=== PATIENT | female | born 1955 ===

== ENCOUNTER 2016-12-26 15:06 | Observation (INO) | payer MEDICAID ==
--- NOTE | 2016-12-26 15:54 | C.PDOC ---
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 Denies trauma, injury, fever or any other complaints at this time. no previou cardiac history. Time Seen by Provider: 12/26/16 15:36 Chief Complaint (Nursing): Chest Pain History Per: Patient History/Exam Limitations: no limitations Onset/Duration Of Symptoms: Days Current Symptoms Are (Timing): Still Present Quality: "Pain" Associated Symptoms: denies: Nausea, Dyspnea, Diaphoresis, Syncope Modifying Factors: None Exacerbating Factors: None Alleviating Factors: None Recent travel outside of the [place]: No Additional History Per: Patient Past Medical History Reviewed: Historical Data, Nursing Documentation, Vital Signs Vital Signs: Last Vital Signs Temp 97.5 F L 12/28/16 07:00 Pulse 68 12/28/16 07:00 Resp 20 12/28/16 07:00 BP 154/76 H 12/28/16 09:13 Pulse Ox 98 12/28/16 07:00 Surgical History: Cholecystectomy - [facility] Procedures DESTRUCT LARYNX LES NEC (02/07/97) Family History: States: Unknown Family Hx - Social History Hx Alcohol Use: No Hx Substance Use: No Review Of Systems Except As Marked, All Systems Reviewed And Found Negative. Constitutional: Negative for: Fever, Chills Cardiovascular: Positive for: Chest Pain. Negative for: Palpitations Respiratory: Negative for: Cough, Shortness of Breath Neurological: Positive for: Headache. Negative for: Weakness, Numbness, Dizziness Physical Exam - Physical Exam Appears: Non-toxic, No Acute Distress Skin: Normal Color, Warm, Dry Head: Atraumatic, Normacephalic Eye(s): bilateral: Normal Inspection Oral Mucosa: Moist Neck: Supple Chest: Symmetrical, No Deformity, No Tenderness Cardiovascular: Rhythm Regular, No Murmur Respiratory: Normal Breath Sounds, No Rales, No Rhonchi, No Wheezing Gastrointestinal/Abdominal: Soft, No Tenderness Extremity: Normal ROM, No Pedal Edema Neurological/Psych: Oriented x3, Normal Speech ED Course And Treatment - Laboratory Results Result Diagrams: 12/27/16 07:00 12/27/16 07:00 ECG: Interpreted By Me, Viewed By Me ECG Rhythm: Sinus Bradycardia ECG Interpretation: No Acute Changes Rate From EC (bpm) O2 Sat by Pulse Oximetry: 100 (RA) Pulse Ox Interpretation: Normal - CT Scan/US Head CT Other Rad Studies (CT/US): Read By Radiologist, Radiology Report Reviewed CT/US Interpretation: Accession No. : [id number]. Patient Name / ID : CHRISTOPHE HENDERSON / [id number]. Exam Date : 12/26/2016 16:15:34 ( Approved ). Study Comment : Sex / Age : F / [id number]. Creator : Emilee Lima. Dictator : Maco Escobedo MD. Clinical Data Analyst : Lunchroom Operator : Maco Escobedo MD. Approver2 : Report Date : 12/26/2016 16:20:45. My Comment : . PROCEDURE: CT HEAD WITHOUT CONTRAST. HISTORY: acosta. COMPARISON: None available. TECHNIQUE: Axial computed tomography images were obtained through the head/brain without intravenous contrast. Radiation dose: Total exam DLP = 842.23 mGy-cm. This CT exam was performed using one or more of the following dose reduction techniques: Automated exposure control, adjustment of the mA and/ or kV according to patient size, and/or use of iterative reconstruction technique. FINDINGS: HEMORRHAGE: No intracranial hemorrhage. BRAIN: Probable calcified meningioma in the anterior right temporal lobe/ right middle cranial fossa. Recommend correlation with prior outside studies. Several incidental parenchymal calcifications in the left posterior temporal lobe common nonspecific. No evidence of acute infarct. VENTRICLES: Unremarkable. No hydrocephalus. CALVARIUM: Unremarkable. PARANASAL SINUSES: Unremarkable as visualized. No significant inflammatory changes. MASTOID AIR CELLS: Unremarkable as visualized. No inflammatory changes. OTHER FINDINGS: None. IMPRESSION: No evidence of acute infarct. No intracranial hemorrhage. Probable calcified meningioma in the right temporal lobe/right middle cranial fossa. . Please correlate with prior outside images if available. No acute findings. Medical Decision Making Medical Decision Making: Blood work, UA, head CT, CXR, EKG ordered and reviewed. atypcial cp, however pt only c/o of 2 hours of pain. will obs for repeat trop, as 1 set is indeterm[address] cho accepts Disposition - Disposition Disposition: HOSPITALIZED Disposition Time: 06:00 Condition: STABLE - Clinical Impression Clinical Impression: Chest pain - Scribe Statement The provider has reviewed the documentation as recorded by the Scribe Andres Gee All medical record entries made by the Scribe were at my direction and personally dictated by me. I have reviewed the chart and agree that the record accurately reflects my personal performance of the history, physical exam, medical decision making, and the department course for this patient. I have also personally directed, reviewed, and agree with the discharge instructions and disposition. Decision To Admit - Pt Status Changed To: Hospital Disposition Of: Observation - . Bed Request Type: Telemetry Admitting Physician: Galo Cho Patient Diagnosis: Chest pain
[2016-12-26 16:05] LABS: EOS # 0.2 K/uL (0.0-0.7); NRBC % 0.1 % (0.0-2.0)
[2016-12-26 16:09] LABS: BASO % 0.5 % (0.0-2.0); EOS % 2.1 % (0.0-4.0); HEMATOCRIT 38.7 % (34.0-47.0); LYMPH % 22.6 % (20.0-40.0); MEAN CELL VOLUME 84.2 fL (81.0-99.0); MEAN CORPUSCULAR HEMOGLOBIN 28.8 pg (27.0-31.0); MEAN CORPUSCULAR HGB CONC 34.2 g/dL (33.0-37.0); MEAN PLATELET VOLUME 8.7 fL (7.2-11.7); MONO # 0.5 K/uL (0.0-0.8); MONO % 6.2 % (0.0-10.0); RED CELL DISTRIBUTION WIDTH 13.6 % (11.5-14.5); WHITE BLOOD COUNT 8.7 K/uL (4.8-10.8)
[2016-12-26 16:15] LABS: ALB/GLOB RATIO 1.6 (1.0-2.1); ALKALINE PHOSPHATASE 69 U/L (38-126); ALT/SGPT 33 U/L (9-52); AST/SGOT 18 U/L (14-36); BLOOD UREA NITROGEN 20 mg/dL (7-17); CALCIUM 8.4 mg/dl (8.6-10.4); CARBON DIOXIDE 27 mmol/L (22-30); CHLORIDE 100 mmol/L (98-107); GFR AFRICAN-AMERICAN > 60; GLUCOSE,RANDOM 84 mg/dL (65-105); POTASSIUM 3.5 mmol/L (3.6-5.2); SODIUM 137 mmol/L (132-148); TOTAL PROTEIN 6.6 g/dL (6.3-8.3)
[2016-12-26 16:18] LABS: RBC URINE 22 /hpf (0-3); TRANSITIONAL EPITHIAL < 1 /hpf (0-3); URINE BACTERIA OCC (<OCC); URINE BILIRUBIN NEGATIVE (NEGATIVE); URINE BLOOD 2+ (NEGATIVE); URINE COLOR Yellow (YELLOW); URINE GLUCOSE (UA) NORMAL (Normal); URINE KETONE NEGATIVE (NEGATIVE); URINE LEUKOCYTE ESTERASE 1+ Leu/uL (Negative); URINE PROTEIN NEGATIVE (NEGATIVE); URINE UROBILINOGEN NORMAL mg/dL (0.2-1.0); WBC URINE 8 /hpf (0-5)
--- NOTE | 2016-12-26 16:33 | CT ---
PROCEDURE: CT HEAD WITHOUT CONTRAST. HISTORY: acosta COMPARISON: None available. TECHNIQUE: Axial computed tomography images were obtained through the head/brain without intravenous contrast. Radiation dose: Total exam DLP = 842.23 mGy-cm. This CT exam was performed using one or more of the following dose reduction techniques: Automated exposure control, adjustment of the mA and/or kV according to patient size, and/or use of iterative reconstruction technique. FINDINGS: HEMORRHAGE: No intracranial hemorrhage. BRAIN: Probable calcified meningioma in the anterior right temporal lobe/ right middle cranial fossa. Recommend correlation with prior outside studies. Several incidental parenchymal calcifications in the left posterior temporal lobe common nonspecific. No evidence of acute infarct. VENTRICLES: Unremarkable. No hydrocephalus. CALVARIUM: Unremarkable. PARANASAL SINUSES: Unremarkable as visualized. No significant inflammatory changes. MASTOID AIR CELLS: Unremarkable as visualized. No inflammatory changes. OTHER FINDINGS: None. IMPRESSION: No evidence of acute infarct. No intracranial hemorrhage. Probable calcified meningioma in the right temporal lobe/right middle cranial fossa. . Please correlate with prior outside images if available. No acute findings.
--- NOTE | 2016-12-26 17:26 | RAD ---
PROCEDURE: CHEST RADIOGRAPH, 1 VIEW HISTORY: chest pain COMPARISON: None available. FINDINGS: LUNGS: Clear. PLEURA: No pneumothorax or pleural fluid seen. CARDIOVASCULAR: Normal. OSSEOUS STRUCTURES: No significant abnormalities. VISUALIZED UPPER ABDOMEN: Normal. OTHER FINDINGS: None. IMPRESSION: No active disease.
--- NOTE | 2016-12-26 19:04 | CP.PCM.HP ---
History of Present Illness - History of Present Illness History of Present Illness: COMPREHENSIVE HISTORY & PHYSICAL EXAM HPI One day history of left-sided chest pain stopped a stabbing with radiation to left arm associated with mild diaphoresis. Patient was evaluated in the ER with normal troponin and EKG. There is a past history of hypertension. PAST HIST. PERSONAL HIST: Smoking. N Alcohol. N Allergy N Travel_- . FAMILY HIST : ROS : Constitutional: Negative for weight change, chills, night sweats, fatigue and usage of assist device. Eyes: Negative for redness, swelling, itching, discharge, vision changes, blurry vision, double vision, glaucoma, cataracts, Ears: Negative for hearing loss, ringing, , tinnitus, vertigo Nose: Negative for rhinorrhea, stuffiness, sniffing, itching, postnasal drip, discoloration, nasal congestion and epistaxis. Throat: Negative for throat clearing, sore throat, hoarseness, difficulty swallowing and difficulty speaking. Respiratory: Negative for cough, chest tightness, sputum or phlegm, chronic cough, hemoptysis, wheezing, snoring at night, pleuritic chest pain and daytime somnolence. Cardiovascular: Negative for orthopnea, PND, Edema of legs, leg cramps, angina , claudication, , irregular heartbeat, Neurology: Negative for irritability, muscle weakness, numbness and tingling, seizures, tremors, migraines, slurred speech, syncope, memory loss, mood changes , recurrent headaches Gastrointestinal: Negative for difficulty swallowing, diarrhea, constipation, black stools, rectal bleeding, nausea, flatulence, reflux, poor appetite, changes in bowel habits, abdominal pain Genitourinary: Negative for frequent urination, hematuria, discharge, incontinence, urinary retention, frequent UTI, Psychiatric: Negative for depression, anxiety/panic, suicidal tendencies, Musculoskeletal: Negative for swollen joints, back pain, , neck pain, morning stiffness of joints, . Skin: Negative for rash, ulcers, itching, dry skin and pigmented lesions. P/E: Constitutional: Appears stated age and in no apparent distress. Head: Normocephalic. Ears: External ear canals patent without inflammation. Tympanic membranes intact with normal light reflex and landmark. Eyes: Pupils are central, bilaterally equal, symmetrical and reacts to light with normal movements and no icterus or pallor. Nose: External nares are patent. Mucosa is pink Mouth-Throat: Good general appearance and condition. No post-pharyngeal/oropharyngeal erythema and tonsillar hypertrophy. Good dental hygiene. Neck-Lymphatic: Neck is supple with normal ROM, no thyromegaly, lymph nodes or masses. JVD is normal with no carotid bruit. Lungs: Clear to percussion and auscultation with bilateral normal air entry. Cardiovascular: S1 and S2 are normal with no murmurs, gallops and rub. GI Exam: No hepatomegaly. Abdomen is soft and non-tender. No Organomegaly , masses or hernias are evident and bowel sounds are normal and active. Neurology: Higher function and all cranial nerves intact, with no gross motor or sensory deficit. Superficial and deep reflexes are normal with downwards planters. No cerebellar deficit with normal gait. Musculoskeletal: No tender spots with normal curvature of the spine with no swelling or restricted ROM of the small and large joints. Extremities: Homans sign absent. Intact pulses with no pitting edema, calf tenderness or skin color changes. Skin: No rash, eruptions or abnormal skin pigmentation LAB/RADIOLOGY: ASSESMENT : Acute coronary syndrome. Hypertension. Present on Admission - Present on Admission Any Indicators Present on Admission: No Past Patient History - Past Social History Smoking Status: Never Smoked - ENDOCRINE/METABOLIC Hx Diabetes Mellitus Type 2: Yes (not on meds) - PSYCHIATRIC Hx Substance Use: No - SURGICAL HISTORY Hx Cholecystectomy: Yes Meds Allergies/Adverse Reactions: Allergies Allergy/AdvReac Type Severity Reaction Status Date / Time No Known Allergies Allergy Unverified 12/26/16 15:15 Results - Vital Signs Recent Vital Signs: Last Vital Signs Temp 98.0 F 12/26/16 18:51 Pulse 72 12/26/16 18:51 Resp 18 12/26/16 18:51 BP 146/78 12/26/16 18:51 Pulse Ox 100 12/26/16 18:51 - Labs Result Diagrams: 12/26/16 15:56 12/26/16 15:56 Labs: Laboratory Results - last 24 hr 12/26/16 12/26/16 12/26/16 15:56 15:56 15:56 WBC 8.7 RBC 4.59 Hgb 13.2 Hct 38.7 MCV 84.2 MCH 28.8 MCHC 34.2 RDW 13.6 Plt Count 256 MPV 8.7 Neut % (Auto) 68.6 Lymph % (Auto) 22.6 [place] % (Auto) 6.2 Eos % (Auto) 2.1 Baso % (Auto) 0.5 Neut # 5.9 Lymph # 2.0 [place] # 0.5 Eos # 0.2 Baso # 0.0 PT 11.3 INR 1.0 APTT 28 Sodium 137 Potassium 3.5 L Chloride 100 Carbon Dioxide 27 Anion Gap 14 BUN 20 H Creatinine 0.6 L Est GFR ( Amer) > 60 Est GFR (Non-Af Amer) > 60 Random Glucose 84 Calcium 8.4 L Total Bilirubin 1.0 AST 18 ALT 33 Alkaline Phosphatase 69 Troponin I < 0.0120 Total Protein 6.6 Albumin 4.1 Globulin 2.6 Albumin/Globulin Ratio 1.6 Urine Color Urine Clarity Urine pH Ur Specific [place] Urine Protein Urine Glucose (UA) Urine Ketones Urine Blood Urine Nitrate Urine Bilirubin Urine Urobilinogen Ur Leukocyte Esterase Urine WBC (Auto) Urine RBC (Auto) Ur Squamous Epith Cells Ur Transition Epith Cell Urine Bacteria 12/26/16 16:00 WBC RBC Hgb Hct MCV MCH MCHC RDW Plt Count MPV Neut % (Auto) Lymph % (Auto) [place] % (Auto) Eos % (Auto) Baso % (Auto) Neut # Lymph # [place] # Eos # Baso # PT INR APTT Sodium Potassium Chloride Carbon Dioxide Anion Gap BUN Creatinine Est GFR ( Amer) Est GFR (Non-Af Amer) Random Glucose Calcium Total Bilirubin AST ALT Alkaline Phosphatase Troponin I Total Protein Albumin Globulin Albumin/Globulin Ratio Urine Color Yellow Urine Clarity Clear Urine pH 6.0 Ur Specific [place] 1.024 Urine Protein Negative Urine Glucose (UA) Normal Urine Ketones Negative Urine Blood 2+ H Urine Nitrate Negative Urine Bilirubin Negative Urine Urobilinogen Normal Ur Leukocyte Esterase 1+ H Urine WBC (Auto) 8 H Urine RBC (Auto) 22 H Ur Squamous Epith Cells 1 Ur Transition Epith Cell < 1 Urine Bacteria Occ H
[2016-12-27 07:34] LABS: BASO % 0.4 % (0.0-2.0); EOS # 0.3 K/uL (0.0-0.7); EOS % 3.7 % (0.0-4.0); HEMATOCRIT 38.1 % (34.0-47.0); LYMPH # 2.6 K/uL (1.0-4.3); LYMPH % 30.7 % (20.0-40.0); MEAN CELL VOLUME 83.8 fL (81.0-99.0); MEAN CORPUSCULAR HGB CONC 34.6 g/dL (33.0-37.0); MEAN PLATELET VOLUME 8.5 fL (7.2-11.7); MONO # 0.5 K/uL (0.0-0.8); MONO % 5.8 % (0.0-10.0); RED CELL DISTRIBUTION WIDTH 13.4 % (11.5-14.5); WHITE BLOOD COUNT 8.4 K/uL (4.8-10.8)
[2016-12-27 08:03] LABS: ALKALINE PHOSPHATASE 66 U/L (38-126); ALT/SGPT 35 U/L (9-52); AST/SGOT 20 U/L (14-36); BLOOD UREA NITROGEN 19 mg/dL (7-17); CALCIUM 8.7 mg/dl (8.6-10.4); CARBON DIOXIDE 27 mmol/L (22-30); CHLORIDE 101 mmol/L (98-107); GFR AFRICAN-AMERICAN > 60; GLUCOSE,RANDOM 86 mg/dL (65-105); POTASSIUM 3.6 mmol/L (3.6-5.2); SODIUM 137 mmol/L (132-148)
[2016-12-27 08:09] LABS: ALB/GLOB RATIO 1.6 (1.0-2.1)
[2016-12-27] MEDS: Enoxaparin 40 mg Syringe SC SCH (10:05)
--- NOTE | 2016-12-27 14:08 | CP.PCM.PN ---
Subjective - Date & Time of Evaluation Date of Evaluation: 12/27/16 Time of Evaluation: 14:07 - Subjective Subjective: CHIEF COMPLAINTS TODAY : LESS CP TNI NEG ROS. HEENT : N. Resp : No cough, wheezing ,pleuritic CP ,or hemoptysis Cardio : No anginal CP, PND, orthopnea, palpitation GI : No abd.pain, n/v ,diarrhea or GI bleeding . CLINICAL ANALYST : No headache, vertigo, focal deficit. Musculoskel : No joint swelling , Derm : No rash Psych : Normal affect. Ext : No swelling ,calf pain PE. Pt. is alert awake in no distress. V.S As noted in the chart Head ,ear nose,throat and eyes : Normal. Neck : Supple with normal carotids. Lungs: Clear air entry. Heart : S1 & S2 normal with S4. No murmur. Abd : Soft non tender with normal bowel sounds. Neuro : Moves all ext. with no localized deficit. Ext : No edema with intact pulses.Non tender calves Derm : No rashes or decubitus ulcer. LABS/RADIOLOGY: ASSESSMENT/PLAN : CHECK ECHO Objective - Vital Signs/Intake and Output Vital Signs (last 24 hours): Temp Pulse Resp BP Pulse Ox 97.8 F 67 20 172/91 H 99 12/27/16 07:00 12/27/16 09:00 12/27/16 07:00 12/27/16 08:22 12/27/16 07:00 Intake and Output: 12/27/16 12/27/16 11:59 23:59 Intake Total 240 Balance 240 - Medications Medications: Current Medications Aspirin (Ecotrin) 81 mg PO DAILY [facility] Last Admin: 12/27/16 10:06 Dose: 81 mg Enoxaparin Sodium (Lovenox) 40 mg SC DAILY [facility] Last Admin: 12/27/16 10:05 Dose: 40 mg Metoprolol Tartrate (Lopressor) 25 mg PO BID [facility] Last Admin: 12/27/16 09:59 Dose: Not Given Pneumococcal Polyvalent Vaccine (Pneumovax 23 Vaccine) 0.5 ml IM .ONCE ONE Stop: 12/28/16 10:01 - Labs Labs: 12/27/16 07:00 12/27/16 07:00 PT 11.3 SECONDS (9.7-12.2) 12/26/16 15:56 INR 1.0 12/26/16 15:56 APTT 28 SECONDS (21-34) 12/26/16 15:56
--- NOTE | 2016-12-27 16:54 | CARD ---
APPROVED REPORT EXAM: Two-dimensional and M-mode echocardiogram with Doppler and color Doppler. Other Information Quality : GoodRhythm : NSR INDICATION CAD Chest Pain M-Mode DIMENSIONS RVDd1.81 (2.1-3.2cm)Left Atrium (MM)2.55 (2.5-4.0cm) IVSd0.70 (0.7-1.1cm)Aortic Root2.61 (2.2-3.7cm) LVDd4.95 (4.0-5.6cm)Aortic Cusp Exc.1.49 (1.5-2.0cm) PWd0.58 (0.7-1.1cm)FS (%) 40 % LVDs2.95 (2.0-3.8cm)LVEF (%)71 (>50%) Aortic Valve AoV Peak Vjmusbho627.4cm/Kevin Peak GR.8mmHg Mitral Valve MV E Wiyfklia18.0cm/sMV A Diwcbojy961.1cm/sE/A ratio0.9 TDI E/Lateral E'0.0E/Medial E'0.0 Tricuspid Valve TR Peak Knllhnet252oe/sTR Peak Gr.55piUxGLQL62zwOe LEFT VENTRICLE The left ventricle is normal size. There is normal left ventricular wall thickness. Left ventricle systolic function is normal. The Ejection Fraction is 65-70%. There is normal LV segmental wall motion. Transmitral Doppler flow pattern is Grade I-abnormal relaxation pattern. There is no ventricular septal defect visualized. RIGHT VENTRICLE The right ventricle is normal size. The right ventricular systolic function is normal. ATRIA The left atrium is borderline dilated. The right atrium size is normal. AORTIC VALVE The aortic valve is mildly sclerotic. The aortic valve is tri-cuspid. No aortic regurgitation is present. There is no aortic valvular stenosis. MITRAL VALVE The mitral valve is normal in structure. There is no evidence of mitral valve prolapse. Mitral regurgitation is trace. TRICUSPID VALVE The tricuspid valve is normal in structure. There is trace tricuspid regurgitation. There is no pulmonary hypertension. PULMONIC VALVE The pulmonic valve is not well visualized. There is no pulmonic valvular regurgitation. GREAT VESSELS The aortic root is normal in size. The ascending aorta is normal in size. The IVC is normal in size and collapses >50% with inspiration. PERICARDIAL EFFUSION There is no pericardial effusion. <Conclusion> Left ventricle systolic function is normal. The Ejection Fraction is 65-70%. Transmitral Doppler flow pattern is Grade I-abnormal relaxation pattern. Mitral regurgitation is trace.
[2016-12-28] MEDS: Enoxaparin 40 mg Syringe SC SCH (09:12)
[2016-12-28] MEDS ORDERED: Pneumococcal 23-Valent Vaccine IM ONE (10:00)
--- NOTE | 2016-12-28 14:50 | CP.PCM.PN ---
Subjective - Date & Time of Evaluation Date of Evaluation: 12/28/16 Time of Evaluation: 14:49 - Subjective Subjective: CHIEF COMPLAINTS TODAY : LESS CP TNI NEG ROS. HEENT : N. Resp : No cough, wheezing ,pleuritic CP ,or hemoptysis Cardio : No anginal CP, PND, orthopnea, palpitation GI : No abd.pain, n/v ,diarrhea or GI bleeding . RN INFUSION : No headache, vertigo, focal deficit. Musculoskel : No joint swelling , Derm : No rash Psych : Normal affect. Ext : No swelling ,calf pain PE. Pt. is alert awake in no distress. V.S As noted in the chart Head ,ear nose,throat and eyes : Normal. Neck : Supple with normal carotids. Lungs: Clear air entry. Heart : S1 & S2 normal with S4. No murmur. Abd : Soft non tender with normal bowel sounds. Neuro : Moves all ext. with no localized deficit. Ext : No edema with intact pulses.Non tender calves Derm : No rashes or decubitus ulcer. LABS/RADIOLOGY: ECHO NORMAL ASSESSMENT/PLAN : CHECK URINE C/S Objective - Vital Signs/Intake and Output Vital Signs (last 24 hours): Temp Pulse Resp BP Pulse Ox 98.2 F 63 20 149/73 97 12/28/16 14:24 12/28/16 14:24 12/28/16 14:24 12/28/16 14:24 12/28/16 14:24 Intake and Output: 12/28/16 12/28/16 11:59 23:59 Intake Total 240 500 Balance 240 500 - Medications Medications: Current Medications Acetaminophen (Tylenol 325mg Tab) 650 mg PO Q4 PRN PRN Reason: Pain, moderate (4-7) Last Admin: 12/28/16 14:39 Dose: 650 mg Aspirin (Ecotrin) 81 mg PO DAILY [facility] Last Admin: 12/28/16 09:13 Dose: 81 mg Enoxaparin Sodium (Lovenox) 40 mg SC DAILY [facility] Last Admin: 12/28/16 09:12 Dose: 40 mg Metoprolol Tartrate (Lopressor) 25 mg PO BID [facility] Last Admin: 12/28/16 09:13 Dose: 25 mg - Labs Labs: 12/27/16 07:00 12/27/16 07:00 PT 11.3 SECONDS (9.7-12.2) 12/26/16 15:56 INR 1.0 12/26/16 15:56 APTT 28 SECONDS (21-34) 12/26/16 15:56
[2016-12-29 08:20] VITALS: PULSE 72; RESP 18; TEMP 97.3; O2SAT 98
[2016-12-29] MEDS ORDERED: Influenza Vaccine 60 mcg/0.5 mL SYR (4YR UP) IM ONE (10:00)
[2016-12-29] MEDS: Enoxaparin 40 mg Syringe SC SCH (10:34)
[2016-12-29 10:39] VITALS: BP 155/82
--- NOTE | 2016-12-29 12:07 | CARD ---
APPROVED REPORT EKG Measurement Heart [id number] NM [id number] [id number] <Conclusion> Sinus bradycardia Otherwise normal ECG
--- NOTE | 2016-12-29 13:31 | CP.PCM.PN ---
Subjective - Date & Time of Evaluation Date of Evaluation: 12/29/16 Time of Evaluation: 13:26 - Subjective Subjective: PT SEEN AND HAS NO COMPLAINTS OF SOB, DIZZINESS, H/A, CP, DYSURIA, ABD PAIN. PT IS VERY EAGER TO BE D/C HOME TODAY. EXAM UNREMARKABLE. LABS REVIEWED; URINE C&S NEGATIVE. VSS. OK TO D/C HOME TODAY PER DR. NORTH. PT TO F/U WITH HER PMD DR. BOZENA LITTLEJOHN IN 1 WEEK. CONTINUE HOME MEDS AND ASA 81 MG PO QD. REFILL RX GIVEN FOR LISINOPRIL PT RAN OUT. OFFERED MEDS TO BED BUT PT REFUSED AND PREFERS TO USE HER OWN PHARMACY. GIVEN CARDIOLOGY DEPT INFORMATION AND DR. NORTH'S OFFICE INFORMATION FOR OUTPATIENT IV LEXISCAN---TO BE DONE OP PER DR. NORTH. NO FURTHER ORDERS. Objective - Vital Signs/Intake and Output Vital Signs (last 24 hours): Temp Pulse Resp BP Pulse Ox 97.3 F L 72 18 155/82 H 98 12/29/16 08:19 12/29/16 08:19 12/29/16 08:19 12/29/16 10:35 12/29/16 08:19 - Medications Medications: Current Medications Acetaminophen (Tylenol 325mg Tab) 650 mg PO Q4 PRN PRN Reason: Pain, moderate (4-7) Last Admin: 12/28/16 14:39 Dose: 650 mg Aspirin (Ecotrin) 81 mg PO DAILY [facility] Last Admin: 12/29/16 10:33 Dose: 81 mg Enoxaparin Sodium (Lovenox) 40 mg SC DAILY [facility] Last Admin: 12/29/16 10:34 Dose: 40 mg Metoprolol Tartrate (Lopressor) 25 mg PO BID [facility] Last Admin: 12/29/16 10:35 Dose: 25 mg - Labs Labs: 12/27/16 07:00 12/27/16 07:00 PT 11.3 SECONDS (9.7-12.2) 12/26/16 15:56 INR 1.0 12/26/16 15:56 APTT 28 SECONDS (21-34) 12/26/16 15:56
--- NOTE | 2016-12-29 13:51 | CP.PCM.DIS ---
Provider - Provider Date of Admission: 12/26/16 17:19 Attending physician: Galo Bueno MD Time Spent in preparation of Discharge (in minutes): 20 Hospital Course - Lab Results Lab Results: Micro Results 12/28/16 14:57 Urine,Clean Catch Urine Culture - Final No Growth (<1,000 CFU/ML) Most Recent Lab Values WBC 8.4 K/uL (4.8-10.8) 12/27/16 07:00 RBC 4.54 Mil/uL (3.80-5.20) 12/27/16 07:00 Hgb 13.2 g/dL (11.0-16.0) 12/27/16 07:00 Hct 38.1 % (34.0-47.0) 12/27/16 07:00 MCV 83.8 fL (81.0-99.0) 12/27/16 07:00 MCH 29.0 pg (27.0-31.0) 12/27/16 07:00 MCHC 34.6 g/dL (33.0-37.0) 12/27/16 07:00 RDW 13.4 % (11.5-14.5) 12/27/16 07:00 Plt Count 251 K/uL (130-400) 12/27/16 07:00 MPV 8.5 fL (7.2-11.7) 12/27/16 07:00 Neut % (Auto) 59.4 % (50.0-75.0) 12/27/16 07:00 Lymph % (Auto) 30.7 % (20.0-40.0) 12/27/16 07:00 Simpson % (Auto) 5.8 % (0.0-10.0) 12/27/16 07:00 Eos % (Auto) 3.7 % (0.0-4.0) 12/27/16 07:00 Baso % (Auto) 0.4 % (0.0-2.0) 12/27/16 07:00 Neut # 5.0 K/uL (1.8-7.0) 12/27/16 07:00 Lymph # 2.6 K/uL (1.0-4.3) 12/27/16 07:00 Simpson # 0.5 K/uL (0.0-0.8) 12/27/16 07:00 Eos # 0.3 K/uL (0.0-0.7) 12/27/16 07:00 Baso # 0.0 K/uL (0.0-0.2) 12/27/16 07:00 PT 11.3 SECONDS (9.7-12.2) 12/26/16 15:56 INR 1.0 12/26/16 15:56 APTT 28 SECONDS (21-34) 12/26/16 15:56 Sodium 137 mmol/L (132-148) 12/27/16 07:00 Potassium 3.6 mmol/L (3.6-5.2) 12/27/16 07:00 Chloride 101 mmol/L (98-107) 12/27/16 07:00 Carbon Dioxide 27 mmol/L (22-30) 12/27/16 07:00 Anion Gap 13 (10-20) 12/27/16 07:00 BUN 19 mg/dL (7-17) H 12/27/16 07:00 Creatinine 0.6 mg/dL (0.7-1.2) L 12/27/16 07:00 Est GFR ( Amer) > 60 12/27/16 07:00 Est GFR (Non-Af Amer) > 60 12/27/16 07:00 POC Glucose (mg/dL) 82 mg/dL (65-110) 12/29/16 11:33 Random Glucose 86 mg/dL (65-105) 12/27/16 07:00 Calcium 8.7 mg/dl (8.6-10.4) 12/27/16 07:00 Total Bilirubin 1.0 mg/dL (0.2-1.3) 12/27/16 07:00 AST 20 U/L (14-36) 12/27/16 07:00 ALT 35 U/L (9-52) 12/27/16 07:00 Alkaline Phosphatase 66 U/L (38-126) 12/27/16 07:00 Total Creatine Kinase 31 U/L (30-135) 12/27/16 07:00 CK-MB (Mass) 0.27 ng/mL (0.0-3.38) 12/27/16 07:00 Troponin I < 0.0120 ng/mL (0.00-0.120) 12/27/16 07:00 Total Protein 6.0 g/dL (6.3-8.3) L 12/27/16 07:00 Albumin 3.7 g/dL (3.5-5.0) 12/27/16 07:00 Globulin 2.3 gm/dL (2.2-3.9) 12/27/16 07:00 Albumin/Globulin Ratio 1.6 (1.0-2.1) 12/27/16 07:00 Urine Color Yellow (YELLOW) 12/26/16 16:00 Urine Clarity Clear (Clear) 12/26/16 16:00 Urine pH 6.0 (5.0-8.0) 12/26/16 16:00 Ur Specific [place] 1.024 (1.003-1.030) 12/26/16 16:00 Urine Protein Negative mg/dL (NEGATIVE) 12/26/16 16:00 Urine Glucose (UA) Normal mg/dL (Normal) 12/26/16 16:00 Urine Ketones Negative mg/dL (NEGATIVE) 12/26/16 16:00 Urine Blood 2+ (NEGATIVE) H 12/26/16 16:00 Urine Nitrate Negative (NEGATIVE) 12/26/16 16:00 Urine Bilirubin Negative (NEGATIVE) 12/26/16 16:00 Urine Urobilinogen Normal mg/dL (0.2-1.0) 12/26/16 16:00 Ur Leukocyte Esterase 1+ Annabel/uL (Negative) H 12/26/16 16:00 Urine WBC (Auto) 8 /hpf (0-5) H 12/26/16 16:00 Urine RBC (Auto) 22 /hpf (0-3) H 12/26/16 16:00 Ur Squamous Epith Cells 1 /hpf (0-5) 12/26/16 16:00 Ur Transition Epith Cell < 1 /hpf (0-3) 12/26/16 16:00 Urine Bacteria Occ (<OCC) H 12/26/16 16:00 - Hospital Course Hospital Course: One day history of left-sided chest pain stopped a stabbing with radiation to left arm associated with mild diaphoresis. Patient was evaluated in the ER with normal troponin and EKG. There is a past history of hypertension. SERIAL TNI WERE NEG ECHO WAS NORMAL URINE C/S NEG PT WAS D/EVENS OUT PT IV LEXISCAN , PX GIVEN Discharge Plan - Discharge Medications Prescriptions: Aspirin [Ecotrin] 81 mg PO DAILY #30 tabec Lisinopril [Zestril] 1 tab PO DAILY #30 tab - Follow Up Plan Condition: STABLE Disposition: HOME/ ROUTINE Instructions: Lisinopril (By mouth), Aspirin (By mouth), Chest Pain (DC), Heart Healthy Diet (DC) Additional Instructions: FOLLOW UP WITH YOUR PRIMARY DOCTOR, DR. LITTLEJOHN, IN 1 WEEK---CALL FOR APPT TIME. CALL DR. BUENO'S OFFICE AND THE [facility] CARDIOLOGY DEPARTMENT TO SCHEDULE AN OUTPATIENT STRESS TEST FOR YOUR HEART. DR. BUENO'S OFFICE NUMBER IS : [phone]. THE CARDIOLOGY DEPARTMENT NUMBER IS [phone] (EXTENSION [id number]). CONTINUE WITH YOUR HOME MEDICATIONS USUAL. CONTINUE TAKING A BABY ASPIRIN (81 MG) ONCE A DAY TO PROTECT YOUR HEART. IF YOU HAVE ANY FURTHER CONCERNS OR QUESTIONS, CONTACT YOUR DOCTOR OR DR. BUENO. Referrals: Galo Bueno MD [Staff Provider] -
--- NOTE | 2016-12-29 17:52 | CARD ---
APPROVED REPORT EKG Measurement Heart [id number] <Conclusion> Normal sinus rhythm Normal ECG
== END 2016-12-29 15:36 | disposition home or self-care (01) ==
LOC: C.ER 15:06 → C.9E 17:19 → C.6T 18:25
PROVIDERS: ADMIT Internal Medicine Cardiovascular Disease; ATTEND Internal Medicine Cardiovascular Disease
DX: R07.89 Other chest pain (principal); I10 Essential (primary) hypertension; Z68.22 Body mass index [BMI] 22.0-22.9, adult
CPT/HCPCS: 36415; 70450; 71010; 80053; 81001; 82948; 84484; 85025; 85610; 85730; 87086; 90471; 90732; 93005; 93306; 99285; G0378; J1650

== ENCOUNTER 2017-06-04 23:31 | Emergency (ER) | payer MEDICAID ==
[2017-06-04 23:42] VITALS: BP 147/78; PULSE 76; TEMP 98; O2SAT 98
--- NOTE | 2017-06-05 00:34 | C.PDOC ---
History Of Present Illness 61 year old female presents to the ER with a complaint of bilateral shoulder pain. Patient was seen at another hospital where she had negative x-rays and was started on pain medication, last dose was at 19:00; however, the pain recurs. Denies trauma, weakness, or numbness. Time Seen by Provider: 06/05/17 00:20 Chief Complaint (Nursing): Upper Extremity Problem/Injury History Per: Patient History/Exam Limitations: no limitations Onset/Duration Of Symptoms: Hrs Current Symptoms Are (Timing): Still Present Exacerbating Factor(s): Strenuous Use Of Affected Area Recent travel outside of the [place]: No Past Medical History Reviewed: Historical Data, Nursing Documentation, Vital Signs Vital Signs: Last Vital Signs Temp 98 F 06/05/17 00:45 Pulse 76 06/05/17 00:45 Resp 20 06/05/17 00:45 BP 147/78 06/05/17 00:45 Pulse Ox 98 06/05/17 03:22 - Medical History PMH: HTN, Hypercholesterolemia Surgical History: Cholecystectomy - [facility] Procedures DESTRUCT LARYNX LES NEC (02/07/97) Family History: States: Unknown Family Hx - Social History Hx Alcohol Use: No Hx Substance Use: No - Immunization History Hx Tetanus Toxoid Vaccination: No Hx Influenza Vaccination: Yes Hx Pneumococcal Vaccination: No Review Of Systems Musculoskeletal: Positive for: Shoulder Pain Neurological: Negative for: Weakness, Numbness Physical Exam - Physical Exam Appears: Non-toxic, No Acute Distress Skin: Normal Color, Warm, Dry Head: Atraumatic, Normacephalic Eye(s): bilateral: Normal Inspection Extremity: Normal ROM (x4), No Tenderness, Capillary Refill (< 2 sec), No Deformity, No Swelling Extremity: Bilateral: Atraumatic, Normal Color And Temperature Pulses: Left Radial: Normal, Right Radial: Normal Neurological/Psych: Oriented x3, Normal Speech, Normal Motor, Normal Sensation Gait: Steady ED Course And Treatment O2 Sat by Pulse Oximetry: 98 (Room air) Pulse Ox Interpretation: Normal Progress Note: Tylenol administered for pain. Patient is resting comfortably in no acute distress, vitals are stable; will discharge home with instructions to follow up with PMD for further evaluation. Disposition Counseled Patient/Family Regarding: Diagnosis, Need For Followup, Rx Given - Disposition Referrals: Jl Vences MD [Primary Care Provider] - Disposition: HOME/ ROUTINE Disposition Time: 00:31 Condition: STABLE Additional Instructions: Please follow up in clinic' Take meds as directed Return to ER if worse Instructions: Joint Pain Forms: [employer] (Czech) - Clinical Impression Clinical Impression: Arthralgia - PA / [employer] / Resident Statement MD/DO has reviewed & agrees with the documentation as recorded. - Scribe Statement The provider has reviewed the documentation as recorded by the Scribe Francisco Berkowitz All medical record entries made by the Jeredibe were at my direction and personally dictated by me. I have reviewed the chart and agree that the record accurately reflects my personal performance of the history, physical exam, medical decision making, and the department course for this patient. I have also personally directed, reviewed, and agree with the discharge instructions and disposition.
[2017-06-05 00:46] VITALS: RESP 20
== END 2017-06-05 00:46 | disposition home or self-care (01) ==
LOC: SUPCPDRO 23:31 → C.ER 23:31
DX: M25.512 Pain in left shoulder (principal); M25.511 Pain in right shoulder